=== PATIENT | male | born 1970 | race Caucasian/White ===

== ENCOUNTER 2018-03-24 11:15 | Day surgery (SDC) | payer OTHER ==
[~2018-03-24 11:15] MED LIST: CEFAZOLIN 2 GM/50 ML (PMX) 50 ML IVPB; SOD CHLORIDE 0.9% 1,000 ML IV
[2018-03-24 12:58] LABS: ADD MAN DIFF? NO
[2018-03-24 13:03] LABS: BASOPHILS % 0.6 % (0.0-2.0); EOSINOPHILS # 0.1 10^3/ul (0.0-0.5); HEMATOCRIT 48.7 % (42.0-52.0); HEMOGLOBIN 15.9 g/dl (14.0-18.0); LYMPHOCYTES # 1.6 10^3/ul (0.8-2.9); LYMPHOCYTES % 23.4 % (15.0-51.0); MEAN CORPUSCULAR HGB CONC 32.6 g/dl (32.0-37.0); MEAN CORPUSCULAR VOLUME 82.8 fl (82.0-101.0); MEAN PLATELET VOLUME 12.9 fl (7.4-10.4); MONOCYTE # 0.6 10^3/ul (0.3-0.9); MONOCYTES % 8.3 % (0.0-11.0); NEUTROPHIL # 4.5 10^3/ul (1.6-7.5); NEUTROPHILS % 66.4 % (39.0-77.0); PLATELET COUNT 163 10^3/UL (140-415); RED BLOOD COUNT 5.88 10^6/ul (4.70-6.10); RED CELL DISTRIBUTION WIDTH 13.4 % (11.5-14.5)
[2018-03-24 13:03] LABS: WHITE BLOOD COUNT 6.8 10^3/ul (4.8-10.8)
[2018-03-24 13:20] LABS: ALANINE AMINOTRANSFERASE 31 IU/L (13-69); ALBUMIN 4.1 g/dl (3.3-4.9); ALBUMIN/GLOBULIN RATIO 1.41; ALKALINE PHOSPHATASE 57 IU/L (42-121); ANION GAP 13 (8-16); ASPARTATE AMINO TRANSFERASE 13 IU/L (15-46); BILIRUBIN,INDIRECT 1.3 mg/dl (0-1.1); BILIRUBIN,TOTAL 1.3 mg/dl (0.2-1.3); BLOOD UREA NITROGEN 13 mg/dl (7-20); CARBON DIOXIDE 26 mmol/L (21-31); CHLORIDE 107 mmol/L (97-110); CREATININE 0.91 mg/dl (0.61-1.24); GLUCOSE 102 mg/dl (70-220); SODIUM 142 mmol/L (135-144)
[2018-03-24 13:23] LABS: INR 0.98; PARTIAL THROMBOPLASTIN TIME 26.6 Sec (25.0-35.0); PROTIME 13.1 Sec (11.9-14.9)
[2018-03-24] MEDS ORDERED: BUPIVACAINE 0.25% (MPF) 30 ML INJ (15:56)
[2018-03-24] MEDS ORDERED: MIDAZOLAM 1 MG/ML 2 ML INJ (16:10)
[2018-03-24] MEDS ORDERED: METOCLOPRAMIDE 10 MG INJ (16:10)
[2018-03-24] MEDS ORDERED: ROCURONIUM 50 MG INJ (16:10)
[2018-03-24] MEDS ORDERED: PROPOFOL 20 ML (16:10)
[2018-03-24] MEDS ORDERED: ONDANSETRON 4 MG INJ (16:10)
[2018-03-24] MEDS ORDERED: ROPIVACAINE 0.5 % 30 ML VIAL (16:11)
[2018-03-24] MEDS ORDERED: CEFAZOLIN 1 GM INJ (16:41)
[2018-03-24] MEDS ORDERED: GLYCOPYRROLATE 0.4 MG INJ (16:41)
[2018-03-24] MEDS ORDERED: NEOSTIGMINE 3 MG/3 ML SYRINGE (16:41)
[2018-03-24] MEDS ORDERED: KETOROLAC 30 MG INJ (16:41)
[2018-03-24] MEDS ORDERED: HYDROCODONE/APAP (5/325) TAB PO (17:00)
[2018-03-24] MEDS ORDERED: MEPERIDINE 25 MG INJ IV (17:00)
[2018-03-24] MEDS ORDERED: KETOROLAC 30 MG INJ IV (17:00)
[2018-03-24] MEDS ORDERED: DIPHENHYDRAMINE 50 MG INJ IV (17:00)
[2018-03-24] MEDS ORDERED: ONDANSETRON 4 MG INJ IV (17:00)
[2018-03-24] MEDS ORDERED: OXYCODONE/ACETAMINOPHEN (5/325) TAB PO ×2 (17:00)
[2018-03-24] MEDS ORDERED: HYDROmorphONE 1 MG/5 ML IV SYRINGE IV ×3 (17:00)
[2018-03-24] MEDS ORDERED: HYDROmorphONE 2 MG/ML SYG (17:10)
== END 2018-03-24 18:48 | disposition home or self-care (01) ==
LOC: SDS 11:15
DX: K80.20 Calculus of gallbladder without cholecystitis without obstruction (principal)
CPT/HCPCS: 47562; 80053; 85025; 85610; 85730; 88304